=== PATIENT | male | born 1970 | race Caucasian/White ===

== ENCOUNTER 2017-10-20 09:15 | Outpatient (CLI) | payer OTHER ==
--- NOTE | 2017-10-20 23:54 | EKG ---
Test Reason : Blood Pressure : / mmHG Vent. 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
== END 2017-10-20 09:16 | disposition home or self-care (01) ==
LOC: LABBT 09:15
PROVIDERS: ATTEND Orthopaedic Surgery
DX: Z01.812 Encounter for preprocedural laboratory examination (principal); M77.11 Lateral epicondylitis, right elbow
CPT/HCPCS: 93005; 93010

== ENCOUNTER 2017-10-22 05:50 | Day surgery (SDC) | payer OTHER ==
[2017-10-20 09:52] VITALS: BMI 31.9
[2017-10-22] MEDS ORDERED: Bupivacaine/Epinephrine 0.25% 30 ML VIAL ONE (06:57)
[2017-10-22] MEDS ORDERED: Bupivacaine PF 0.5% 30 ML VIAL ONE (06:57)
[2017-10-22] MEDS ORDERED: Bupivacaine HCl 0.5%/Epinephrine 1:200,000/PF 30 ml Vial ONE (06:57)
[2017-10-22] MEDS ORDERED: CEFAZOLIN/Water 2 GM/20 ML SYRINGE ONE (07:02)
[2017-10-22 07:06] LABS: Hemoglobin 16.4 g/dL (14.0-18.0); Mean Corpuscular HGB CONC 33.9 g/dL (32.0-36.0); Mean Corpuscular Hemoglobin 28.7 pg (27.0-31.0); Mean Corpuscular Volume 84.6 fl (80.0-94.0); Mean Platelet Volume 7.9 fL (7.4-10.4); Platelet Count 199 thou/uL (130-400); RBC Distribution Width 12.2 % (11.5-14.5); White Blood Cell (WBC) Count 6.3 thou/uL (4.8-10.8)
[2017-10-22] MEDS ORDERED: Fentanyl 100 MCG/2 ML VIAL ONE (07:25)
--- NOTE | 2017-10-22 09:30 | OP ---
DATE OF PROCEDURE: 10/22/2017 PREOPERATIVE DIAGNOSIS: Right tennis elbow/lateral epicondylitis POSTOPERATIVE DIAGNOSIS: Right tennis elbow/lateral epicondylitis PROCEDURE PERFORMED: Right tennis elbow release. STAFF: Willis Muñoz M.D. [employer]ER: None. ANESTHESIA: Sherrie. The patient received a LMA with 15 mL of 0.25% Marcaine with epinephrine. ESTIMATED BLOOD LOSS: 10 mL. TOURNIQUET TIME: 19 minutes. ANTIBIOTICS: Ancef. COMPLICATIONS: None. HISTORY OF PRESENT ILLNESS: Mr. Pugh is a pleasant 47-year-old male who is right hand dominant, presented with elbow pain. He has had review of symptoms, had 2 injections with good relief. I discussed with the patient the risks and benefits of right tennis elbow release to include pain, scar, bleeding, infection damage to vital structures, decreased range of motion or strength, continued pain despite surgical intervention. The patient understood these risks and benefits and elected to proceed. PROCEDURE IN DETAIL: Time out was performed designating the patient's right upper extremity as the operative site based on site, consents and markings. The patient's upper extremity was prepped and draped in a sterile fashion. Tourniquet was brought up and left up for a total of 19 minutes. Incision made over the lateral epicondyle down through skin, came down on the lateral epicondyle, split the fascia, taking a portion of brachialis, the extensor carpi radialis longus and then the brevis underneath which was taken down. I exposed down to the capsule, saw the portion of the patient's lateral and collateral ligament, nibbled off, rongeured the most prominent side of the epicondyle to create a bleeding bed, removed the undersurface of the extensor carpi radialis longus, looked at tendon. I washed the wound. Being happy with my extensor carpi radialis brevis release, we washed, closed with 0 Vicryl, the fascial plane on top, injected 7 mL of Marcaine 5% 30% with epinephrine. I then closed subcu and skin and placed 8 mL subfascial and subcutaneously. We then washed and closed, placed in a soft tissue splint. The tourniquet was let down after 19 minutes. The patient will be no weightlifting. He will be sent with some hydrocodone with ibuprofen for pain. The patient will follow up me in about 10-14 days for suture removal. MTDD
[2017-10-22] MEDS ORDERED: PROPOFOL 200 MG/20 ML VIAL ONE (15:12)
[2017-10-22] MEDS ORDERED: ePHEDrine/0.9% NaCl/PF SYRINGE 50 mg/10 ml ONE (15:12)
[2017-10-22] MEDS ORDERED: Glycopyrrolate 0.2 MG/ML 5 ML SYRINGE ONE (15:12)
[2017-10-22] MEDS ORDERED: Lidocaine 1% PF 5 ML VIAL ONE (15:12)
[2017-10-22] MEDS ORDERED: Atropine Sulfate 0.4 mg/1 ml Vial ONE (15:12)
== END 2017-10-22 09:45 | disposition home or self-care (01) ==
LOC: SDC 05:50
PROVIDERS: ATTEND Orthopaedic Surgery
PROC: 0LN30ZZ Release Right Upper Arm Tendon, Open Approach (ICD-10-PCS; principal; 2017-10-22)
DX: M77.11 Lateral epicondylitis, right elbow (principal); K21.9 Gastro-esophageal reflux disease without esophagitis; I10 Essential (primary) hypertension; Z91.041 Radiographic dye allergy status
CPT/HCPCS: 85027; J0461; J0670; J2001; J2704; J3010; S0020